=== PATIENT | female | born 1960 | race Caucasian/White ===

== ENCOUNTER 2016-05-20 00:20 | Emergency (ER) | payer OTHER ==
[~2016-05-20] VITALS: Ht 162.6 cm; Wt 100.0 kg
[2016-05-20 00:52] VITALS: BP 180/118; PULSE 84; RESP 24; O2SAT 94
--- NOTE | 2016-05-20 01:05 | ED.REPORT ---
HPI-Extremity Problem Lower Date of Service May 20, 2016 ED Provider: Manuela Nj MD 56 year old female with a remote history of right ankle fracture, and recent history of right foot fracture presents to the ER complaining of right foot pain status post mechanical ground level fall while getting out of her car yesterday evening. She states that she is unable to bear weight or bend her toes secondary to pain. Symptoms have been treated with Tylenol 6 hours ago. Nursing Notes Stated Complaint: FALL/ RT FOOT INJURY Chief Complaint: Extremity Trauma Nursing Notes Reviewed: Yes Allergies: Coded Allergies: No Known Allergies (Unverified , 05/20/16) General Time Seen by MD: 01:04 Chief Complaint Foot injury right Hx Obtained From: Patient Arrived By: Walk-in Onset Occurred: Yesterday Symptom Duration: Since onset Caused by: Accidental, Fall on ground Context: Occurred at: Workplace Location: : Foot right Quality: Painful Severity: Current: Moderate Severity: Maximum: Moderate Pertinent Negative: Pt denies other symptoms Exacerbated by: Movement Pertinent Negative: Relieved by nothing Similar Sx Previous: Yes Past Medical History Past Medical History Right ankle fracture Right foot fracture Reports: Hypertension Smoking History Unknown if Ever Smoker Review of Systems Musculoskeletal: Reports: Extremity pain (Right Foot), Denies: Back pain, Lumbar pain, Neck pain, Thoracic pain Neurologic: Denies: Headache, Syncope Complete sys rev & neg: except as marked. Physical Exam Initial Vital Signs Vital Signs (First) Date Time Temp Pulse Resp B/P Pulse Ox O2 Delivery O2 Flow Rate FiO2 05/20/16 00:52 36.2 84 24 180/118 94 Room Air Initial VS: Reviewed General/Constitutional: Well-developed, Well-nourished Head / Eyes: Atraumatic, Normocephalic Neck: Supple, Non-tender, Full range of motion Upper Extremities: Vascular intact, Neuro intact, No swelling, No tenderness Skin: Warm, Dry, No cyanosis Neurologic: Alert, Oriented, Nonfocal Psychiatric: Mood/affect normal, Behavior normal, Normal thought content Lower Extremity / Pelvis / MS: Atraumatic, Inspection NL, Full range of motion , No swelling, Non-tender, No erythema, No deformity, Neurologic intact, Vascular intact, No edema Ankle / Foot: No deformity, Neurologic intact, Vascular intact RIGHT FOOT/ANKLE: 2+ DP PT pulses Mild edema without ecchymosis or erythema proximal to the great toe with tenderness. No malleolar tenderness. Interpretation & Diagnostics X-Ray Interpretation Xray Interpretation: No fracture. X-Ray Ordered: Foot right Interpretation / Wet Read by: Wet read ED physician Re-Eval/Medical Decision Med Decision/Clinical Course 56-year-old female here with right foot pain after mechanical fall. Differential diagnosis includes but is not limited to fracture versus dislocation versus contusion versus abrasion. By my view of x-ray, patient has no evidence of fracture. I offered her a hard soled shoe, however, she declined because she has a walking boot at home. She has been given very strict return precautions and is amenable to discharge with follow-up. Re-Evaluation/Progress : Time of Eval: 02:11 Re-Evaluation/Progress Note: Discussed imaging results and plan to discharge. Patient is amenable to the plan. Return precautions given. All other questions addressed. Counseled Regarding: Diagnosis, Need for follow-up, When/why to return to ED Discharge & Departure Impression: Primary Impression: Right foot pain Disposition: Home Discharge Condition All VS Reviewed: Yes Condition: Stable Patient Instructions: Foot Contusion (ED) Additional Instructions: Your X-ray does not show any sign of fracture. Wear your boot for comfort. Follow-up with your primary care provider this week. Return to the ER if you develop any uncontrollable pain or any other concerning symptoms. Referrals: NOPCP (PCP) Radha Moore MD (Family) Scribe Attestation Portions of this note were transcribed by Jimenez Schwartz. I, Dr. Nj, personally performed the history, physical exam and medical decision-making; I reviewed and confirmed the accuracy of the information in the transcribed note. Signed by: Debra Pollock. 05/20/2016 - 02:13 copies to: Radha Moore MD, Rebecca A MD May 20, 2016 01:05 JIMENEZ SCHWARTZ May 20, 2016 01:23
[2016-05-20 02:39] VITALS: BP 180/118; PULSE 84; RESP 24; O2SAT 94
--- NOTE | 2016-05-20 09:35 | DRSVH ---
PROCEDURE: X-RAY RIGHT FOOT COMPLETE, MINIMUM THREE VIEWS ([id number]) INDICATIONS: pain TECHNIQUE: 3 views of the foot were acquired. COMPARISON: None. FINDINGS: Bones: No fractures or dislocations. No suspicious bony lesions. Soft tissues: No tibiotalar joint effusion. Achilles tendon appears normal. IMPRESSION: No acute bony abnormality is found in the right foot. Dictated by: Yony Marina M.D. on 05/20/2016 at 9:32 Approved by: Yony Marina M.D. on 05/20/2016 at 9:34
== END 2016-05-20 02:40 | disposition home or self-care (01) ==
LOC: SED 00:20
DX: M79.671 Pain in right foot (principal); V48.4XXA Person boarding or alighting a car injured in noncollision transport accident, initial encounter; Y92.59 Other trade areas as the place of occurrence of the external cause; Y93.89 Activity, other specified; Y99.8 Other external cause status; I10 Essential (primary) hypertension; Z87.828 Personal history of other (healed) physical injury and trauma